=== PATIENT | female | born 1970 | race Caucasian/White ===

== ENCOUNTER → 2017-12-20 12:30 | Outpatient (CLI) | payer BC, SELFPAY ==
--- NOTE | 2017-12-20 12:35 | RAD_ITS ---
STUDY: X-RAY CHEST REASON FOR EXAM: Female, 47 years old. Acute bronchitis. TECHNIQUE: PA and lateral views of the chest. COMPARISON: None. FINDINGS: The lungs are clear and expanded. There is no demonstrated pleural abnormality. Normal size heart. Normal mediastinum and kedar. Normal visualized pulmonary arteries. Normal visualized aortic arch and descending thoracic aorta. There are degenerative changes of the visualized thoracic spine. Normal visualized ribs, clavicles, and shoulders. Surgical clips are seen in the right upper quadrant suggestive of prior cholecystectomy. RAD/Chest PA and Lateral IMPRESSION: Normal x-ray examination of the chest. Electronically Signed: Vijay Pablo MD at 14:58 EST Tel [phone], Service support ,
== END ==
PROVIDERS: Family Provider Family Medicine; PCP Family Medicine; Visit Provider Family Medicine
DX: J20.9 Acute bronchitis, unspecified (principal)
CPT/HCPCS: 71046

== ENCOUNTER → 2021-01-22 09:15 | Outpatient (CLI) | payer BC, SELFPAY ==
--- NOTE | 2021-01-22 09:38 | CT_ITS ---
STUDY: CT ABDOMEN AND PELVIS WITH CONTRAST REASON FOR EXAM: Female, 50 years old. ABD PAIN. One week history of diarrhea with central abdominal pain. RADIATION DOSAGE (If Supplied By Facility): CTDIvol = ( 12.345 ) mGy, DLP = ( 830.66 ) mGycm TECHNIQUE: Transaxial images were obtained from the dome of the diaphragm to the symphysis pubis with oral contrast. Oral and amp; IV Gastrografin and amp; 100mL Isovue-300 was administered. Sagittal and coronal images were reconstructed. Individualized dose optimization techniques were used for this CT. COMPARISON: None. FINDINGS: The visualized lung bases are unremarkable. The visualized portions of the heart are within normal limits. Normal liver. There are surgical clips in the gallbladder fossa consistent with a prior cholecystectomy. Minimally dilated central intrahepatic biliary ducts most likely secondary to prior cholecystectomy. Normal spleen. Normal pancreas. Normal bilateral adrenal glands. Normal right kidney. Normal left kidney. There is a small hiatal hernia. Mild degree of dilatation of proximal small bowel loops. This evidence of an intussusception in the mid jejunal level in the left upper quadrant as seen on axial images #46 through 56. Normal colon. The appendix is visualized and appears normal. Normal abdominal aorta. Normal inferior vena cava. Normal retroperitoneum. Normal urinary bladder. There is a 3.9 cm x 3 cm cyst in the right ovary. Multiple follicles are seen in the left ovary. The patient is status post bilateral tubal ligation. Normal abdominal wall. Normal osseous structures. CT/Abdomen/Pelvis WITH Contrast IMPRESSION: Findings in keeping with the intussusception in the left upper quadrant and in the mid jejunal loops as described. Right ovarian cyst. Multiple follicles are seen in the left ovary. Electronically Signed: Vijay Pablo MD at 12:32 EDT , Service support ,
--- NOTE | 2021-01-22 09:40 | RAD_ITS ---
STUDY: X-RAY CHEST REASON FOR EXAM: Female, 50 years old. CHEST PAIN TECHNIQUE: PA and lateral COMPARISON: 12/20/2017 report only FINDINGS: The lungs are clear and expanded. There is no demonstrated pleural abnormality. Normal size heart. Normal mediastinum and kedar. Normal visualized pulmonary arteries. Normal visualized aortic arch and descending thoracic aorta. Dorsal spine demonstrates mild spondylosis.. Normal visualized ribs, clavicles, and shoulders. There is no demonstrated abnormality of the visualized soft tissue structures of the upper abdomen. RAD/Chest PA and Lateral IMPRESSION: No acute cardiopulmonary pathology. Electronically Signed: Brent Barajas MD at 17:29 EDT , Service support ,
[2021-01-22 09:56] LABS: White Blood Count 5.1 K/mm3 (4.4-11.0)
[2021-01-22 09:57] LABS: Absolute Lymphocyte Count 1.79 X10^3/uL (0.83-4.51); Absolute Neutrophil Count 2.5 X10^3/uL (2.0-7.7); Basophil# 0.03 X10^3/uL; Basophil% 0.6 % (0-1); Eosinophil# 0.03 X10^3/uL; Eosinophils% 0.6 % (0-5); Hematocrit 45.9 % (37-47); Hemoglobin 14.9 g/dL (12.0-15.0); Lymphocyte # 1.79 X10^3/ul (4.0); Lymphocyte % 35.4 % (19-41); Mean Corp Hgb Conc 32.5 g/dL (32-36); Mean Corpuscular Hgb 26.9 pg (27.0-32.0); Mean Corpuscular Volume 82.9 fL (81-99); Mean Platelet Vol. 10.5 fl (6.2-12.0); Monocyte# 0.66 X10^3/uL; NRBC Flagged by Analyzer 0 % (0-5); Neutrophil # 2.54 X10^3/uL (2.7-7.7); Neutrophil % 50.2 % (47-70); Platelet Count 298 K/mm3 (150-450); RBC Distribution Width CV 14.2 % (11.6-14.6); RBC Distribution Width SD 43.2 fl (35.1-43.9); Red Blood Count 5.54 M/mm3 (4.2-5.4)
[2021-01-22 10:03] LABS: ALB/GLOB Ratio 0.8 RATIO (0.9-2.4); AST(SGOT) 44 U/L (15-37); Alanine Aminotransfer ALT/SGPT 117 U/L (13-56); Albumin, Serum 3.2 g/dL (3.2-5.0); Alkaline Phosphatase 63 U/L (45-117); Anion Gap 5 (5-15); BUN 10 mg/dL (7-18); BUN/Creat Ratio 13.6 RATIO (10-20); Chloride 100 mmol/L (98-107); Creatinine, Serum 0.73 mg/dL (0.55-1.02); EST Glomerular Filtration Rate 89 mL/min (>60); Est Glom Filt Rate - Afr Amer 108 mL/min (>60); Globulin 4.2 g/dL (2.2-4.2); Glucose 102 mg/dL (74-106); Lipase 147 U/L (73-393); Potassium 3.2 mmol/L (3.5-5.1); Protein, Total 7.4 g/dL (6.4-8.2); Sodium Level 136 mmol/L (136-145)
== END ==
PROVIDERS: PCP Family Medicine; Visit Provider Family Medicine
DX: R07.9 Chest pain, unspecified (principal)
CPT/HCPCS: 36415; 71046; 74177; 80053; 83690; 85025; Q9967; A4216

== ENCOUNTER 2021-01-22 12:30 | Observation (INO) | payer BC, SELFPAY ==
[2021-01-22] VITALS (7 sets, daily range): BP systolic 98–120; BP diastolic 59–80; PULSE 84–96; RESP 15–18; TEMP 36.3–37; O2SAT 94–100; BMI 25.6; BMI 26.2; BMI 26.3
--- NOTE | 2021-01-22 12:51 | ED.VIS.GI ---
History of Present Illness Chief Complaint: Abd Pain Informant: Patient - Abdominal Pain/Flank Pain Onset: Days Context: Gradual Onset Timing: Continuous Narrative: Patient is a 50-year-old female with history of anemia resenting with diarrhea, abdominal pain and intussusception on outpatient CT. Patient states she has been having diarrhea for the past 2 weeks and been feeling unwell. Last week she developed abdominal pain which has been worsening. States the pain is constant and sharp. States she is never had pain like this before. She had to go home from work last week because she was feeling so unwell. She was seen by her primary care doctor and had blood work including CBC and CMP as well as a CT of the abdomen pelvis performed. CT of the abdomen pelvis showed intussusception of the left upper quadrant and in the mid jejunal loops. This is consistent with area of patient's pain. Patient was sent to the ER for further evaluation. Patient denies any recent antibiotics. No other complaints at this time. Patient denies any history of C. difficile colitis. Past Medical History - Allergies and Home Meds Allergies/Adverse Reactions: Allergies No Known Allergies Allergy (Verified 01/22/21 12:32) Primary Care Physician: Yogi Lyons MD [Primary Care Provider] - Past Medical History: - - Anemia Surgical History: cholecystectomy, - - Lives: With Family Smoking Status: Never smoker Review of Systems General: Denies: Chills, Fever, Sweats Eyes: Denies: Visual changes - bilaterally, Diplopia ENT: Denies: Rhinorrhea, Sore throat Cardiovascular: Denies: Chest pain, Palpitations Respiratory: Denies: Dyspnea, Cough, Dyspnea on exertion Gastrointestinal: Reports: Abdominal pain, Nausea, Diarrhea. Denies: Vomiting, Melena, Hematochezia Genitourinary: Denies: Dysuria, Hematuria, Frequency Musculoskeletal: Denies: Back pain, Extremity Pain Skin: Denies: Rash, Wounds Neurological: Denies: Headache, Weakness, Numbness Physical Exam Vital Signs/Narrative: Vital Signs Temp Pulse Resp BP Pulse Ox 01/22/21 12:32 97.4 F L 93 15 107/79 99 Inital Vital Signs reviewed: Yes General: Well nourished, Well developed, No Acute Distress, - - Tearful Head: Normocephalic, Atraumatic Eyes: Perrl, EOMI ENT: Moist mucous membranes, No rhinorrhea Neck: Supple, Nontender Cardiovascular: Regular rate, Regular rhythm, No murmurs Respiratory: No distress, CTA bilaterally, Chest nontender Abdomen: Soft, Nondistended, Normal bowel sounds, Tender - Epigastric and left upper quadrant. Negative for: Guarding, Rebound tenderness Back: Nontender, Normal Inspection Extremities: Nontender, No edema Skin: Normal color, No rash Neurological: Alert, Oriented x3, Cranial nerves II-XII grossly intact, Normal Strength, Normal Sensation Psychological: Normal affect, Normal Mood Diagnostic/Tx/Re-eval - Medical Decision Making And for worsening abdominal pain and associated diarrhea and nausea. On exam she is tearful and does have pain in her epigastric region. She had an outpatient CT today that showed intussusception. She also has mild hypokalemia but I do not think this is the cause of her symptoms. Patient treated symptomatically with IV Pepcid, Zofran and morphine. She does have improvement of her symptoms. I did talk with on-call surgery, Dr. Chase, who would like small bowel follow-through performed. This is ordered from the ER. She reviewed these films and give final disposition based on this. Patient does require her second dose of morphine while she is over in radiology. Patient signed out to oncoming provider, Dr. Melendez, pending final disposition and results of small bowel follow-through. ED Disposition - Plan for ED Patient: Diagnosis: Diarrhea, Abdominal pain Referrals: Yogi Lyons MD [Primary Care Provider] -
[2021-01-22] MEDS: 0.9% Normal Saline 1,000 ML 999 ML IV (13:12)
[2021-01-22] MEDS: Ondansetron 4 MG/2 ML Vial IV ×2 (13:13→17:15)
[2021-01-22] MEDS: Morphine 4 MG/ML Syringe IV ×2 (13:13→14:15)
--- NOTE | 2021-01-22 13:25 | RAD_ITS ---
INDICATION: ? intussispection -- gastrograffin EXAMINATION/TECHNIQUE: Gastrograffin oral contrast was administered orally via orally to the patient. Total Fluoroscopic Time: 180 AND number of Fluoroscopic Images: 9 OR Radiation dosage index: COMPARISON: CT earlier today FINDINGS: No masses or strictures are identified. The mucosal pattern is unremarkable. There is normal motility. Reflux was not elicited. RAD/Small Bowel Series Only IMPRESSION: No bowel obstruction Electronically Signed: Alessio Manning MD at 16:55 EDT Tel , Service support ,
[2021-01-22] MEDS: Famotidine 200 MG/20 ML MDV 20 MG in 0.9% Normal Saline (Pres. free 8 ML 300 MG IV (14:46)
--- NOTE | 2021-01-22 14:48 | PCM.HP.STD ---
Problem List (1) Abdominal pain Status: Acute History of Present Illness Date of Admission: 01/22/21 Chief Complaint: Left upper quadrant abdominal pain. Diarrhea. The patient is a 50 year old F who presented to the ED following having a CT scan of the ab/pel which demonstrated intussusception. Patient was evaluated in x-ray. She states her last solid food meal was on 01/10. She noted Wednesday, 01/12, she lost her appetite. Her abdominal pain started started around this same time as well. She has been nauseated. No true vomiting. She notes difficulty sleeping due to the pain. She notes she has not slept in over a week. She was scheduled to see her PCP today who ordered lab work and a CT scan. She notes prior to her symptoms she had normal bowel movements and normal appetite. She denies previous colonoscopy. She denies family history of colon cancer or inflammatory bowel disease. She denies rectal bleeding or melena. 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 She does not take any routine medications. She has had previous x 2 and lap cholecystectomy. She denies smoking history, alcohol use or illicit drug use. CT scan of the abdomen demonstrates Findings in keeping with the intussusception in the left upper quadrant and in the mid jejunal loops as described. Right ovarian cyst. Multiple follicles are seen in the left ovary. She is currently having a small bowel follow-through. Past Medical History Medical History: Medical History (Last Reviewed 01/22/21 @ 15:00 by Jennifer CASTILLO, PA-C) Anemia D64.9 Chest pain R07.9 SOB (shortness of breath) R06.02 Toxic shock A48.3 Allergies No Known Allergies Allergy (Verified 01/22/21 12:32) Home Medications: Ambulatory Orders Medication Instructions Recorded Ibuprofen [Advil] 200 mg PO DAILY PRN PRN 01/22/21 Surgical History: Surgical History (Last Reviewed 01/22/21 @ 15:00 by Jennifer CASTILLO, PA-C) History of knee surgery Z98.890 Hx of section Z98.891 Hx of cholecystectomy Z98.890, Z90.49 Surgical History: cholecystectomy, - - Psychiatric History: No pertinent psych hx Lives: Spouse/ Significant Other Smoking Status: Never smoker - *Family History Maternal History Items: No pertinent history Paternal History Items: No pertinent history Review of Systems Constitutional: Reports: Anorexia, Weakness. Denies: Chills, Fever HEENT: Denies: Head Aches, Sinus Congestion, Sinus Drainage Cardiovascular: Denies: Chest Pain, Palpitations Respiratory: Denies: Cough, Shortness of breath at rest, Sputum production Gastrointestinal: Reports: Abdominal Pain, Diarrhea, Nausea. Denies: Melena, Vomiting Genitourinary: Denies: Dysuria Musculoskeletal: Denies: Joint Pain, Joint Tenderness Skin: Denies: Rash, Wounds Neurological: Denies: Numbness, Tingling, Focal weakness Psychiatric: Denies: Anxiety, Depression, Homicidal Ideations, Suicidal Ideations Hematologic/ Lymphatic: Denies: Easy Bruising, Easy Bleeding VTE Information - Inpt Only VTE Present on Admission: Yes VTE Mechan Device Prophylaxis: SCD's Patient Problems: Active and Suspected Problems (Last Reviewed 01/22/21 @ 15:00 by ANNA Walker-C) Abdominal pain (Acute) - Physical Exam Vitals/I&O's: Vital Signs Temp Pulse Resp BP Pulse Ox 97.4 F L 93 15 107/79 99 01/22/21 12:32 01/22/21 12:32 01/22/21 12:32 01/22/21 12:32 01/22/21 12:32 Oxygen Delivery Method Room Air Weight: 163 lb 9.328 oz Body Mass Index (BMI) 25.6 General: Alert, Oriented x3, Cooperative, - - tearful HEENT: Atraumatic, PERRLA, EOMI, Normocephalic Neck: Supple, No JVD, Negative Carotid Bruits Lungs: Clear to auscultation, Normal air movement Cardiovascular: Regular rate, No murmurs Abdomen: Hyperactive Bowel Sounds, Distended - slightly, Guarding - LUQ, Tender - left upper quadrant Extremities: No edema, Capillary Refill Less than 3 Seconds Skin: No rashes, No breakdown Musculoskeletal: No Tenderness to Palpation of Joints or Extremities Neurological: Neuro grossly intact Psych/Mental Status: Normal Affect, Appropriate Assessment/Plan All Active Problems (Last Reviewed 01/22/21 @ 15:00 by Jennifer CASTILLO PA-C) Abdominal pain (Acute) Anxiety as acute reaction to exceptional stress (Acute) I am seeing this patient in conjunction with Dr. Chase. She will independently evaluate this patient. Impression: LUQ abdominal pain severe with guarding. Diarrhea. Plan: I have discussed this patient with Dr. Chase. Will plan to admit this patient for IV hydration and pain control. It was discussed with the patient that Dr. Chase may perform an exploratory laparoscopy procedure if patient does not improve. Patient has had the opportunity to ask and have questions answered. Patient verbally understands and agrees with the plan. Thank you for allowing us to participate in this patient's care. Office Visits / Consults: [id number] IP Consult L3
--- NOTE | 2021-01-22 15:31 | NURSING ---
MED SURG OBS ROBOTELFEGO ABD PAIN, INTUSSUSCEPTION
--- NOTE | 2021-01-22 15:32 | NURSING ---
DR HUERTA IN ROOM
[2021-01-22] MEDS: HYDROmorphone 0.5 MG/0.5 ML SYRINGE IV ×3 (15:33→19:17)
[2021-01-22] MEDS: Lactated Ringers 1,000 ML 130 ML IV (16:30)
[2021-01-22] MEDS: 0.9% Saline Lock 10 ML Syringe IV (16:40)
--- NOTE | 2021-01-22 18:08 | NURSING ---
k pad to abd.-pt sleeping
[2021-01-22] MEDS: proCHLORPERazine 10 MG/2 ML Vial IV (19:17)
[2021-01-23] VITALS (21 sets, daily range): BP systolic 92–115; BP diastolic 52–69; PULSE 66–89; RESP 16–18; TEMP 36–36.9; O2SAT 94–99; BMI 26.2
[2021-01-23] MEDS: Lactated Ringers 1,000 ML 130 ML IV ×3 (00:28→22:52)
--- NOTE | 2021-01-23 05:30 | EKG12_ITS ---
Test Reason : AM EKG Blood Pressure : / mmHG Vent. Rate : 105 BPM Atrial Rate : 115 BPM P-R Int : 000 ms QRS Dur : 098 ms QT Int : 366 ms P-R-T Axes : 000 043 018 degrees QTc Int : 483 ms Atrial fibrillation Nonspecific T wave abnormality , probably digitalis effect Abnormal ECG No previous ECGs available Confirmed by JOSY MCNAMARA, BERRY ([id number]), magazine editor MICHAEL BEAUCHAMP ([id number]) on 01/27/2021 1:56:26 PM Referred By: DEANNA Confirmed By:BERRY FERRIS MD
--- NOTE | 2021-01-23 05:37 | ECHOD_ITS ---
Reason For Study: AFIB Procedure This was a 2D Doppler, Color Flow transthoracic echocardiogram. Exam performed portable in patient room. Left Ventricle Normal LV size. The estimated ejection fraction is 60 %. No evidence for diastolic dysfunction. No regional wall motion abnormalities noted. Right Ventricle Normal RV size. Normal systolic function. Atria Normal left atrium. Normal right atrium. No doppler evidence for ASD. Mitral Valve There is no mitral valve stenosis. No mitral valve insufficiency. Tricuspid Valve There is no tricuspid stenosis. Unable to estimate RV systolic pressure due to insufficient tricuspid regurgitant envelope. Trivial tricuspid valve insufficiency. Aortic Valve Trisinus/trileaflet aortic valve. There is no aortic stenosis. No aortic valve insufficiency. Pulmonic Valve There is no pulmonic valvular stenosis. No pulmonic valve insufficiency. Great Vessels Normal aortic root. Pericardium/Pleural No pericardial effusion. MMode/2D Measurements & Calculations LVIDd: 4.4 cm IVSd: 0.98 cm Ao root diam: 2.7 cm LVIDs: 3.1 cm LVPWd: 0.96 cm RVDd: 4.2 cm FS: 30.2 % LAV(MOD-bp): 46.8 ml LA A4 area: 17.7 cm2 LA dimension(2D): 3.5 cm LAV(MOD-bp) Indexed: 25.0 ml/m2 LAV(MOD-sp2): 43.6 ml LAV(MOD-sp4): 48.3 ml RA A4 area: 13.4 cm2 Time Measurements MV dec time: 0.18 sec Doppler Measurements & Calculations MV E max rodríguez: 60.4 cm/sec Lat Peak E' Rodríguez: 14.3 cm/sec Med Peak E' Rodríguez: 12.3 cm/sec MV A max rodríguez: 48.3 cm/sec E/E' lat: 4.2 E/E' med: 4.9 MV E/A: 1.3 Ao V2 max: 108.7 cm/sec LV V1 max: 99.9 cm/sec PA V2 max: 96.1 cm/sec Ao max P.7 mmHg LV V1 max P.0 mmHg TR max rodríguez: 190.7 cm/sec TR max P.6 mmHg Interpretation Summary The estimated ejection fraction is 60 %. No evidence for diastolic dysfunction. Ordering Physician: Candis Ospina Referring Physician: DINAH CARDOZA Performed By: Maryjane Zhou, GLYNN, RVT
--- NOTE | 2021-01-23 05:42 | PN_ITS ---
Patient Problems: Active and Suspected Problems (Last Reviewed 01/22/21 @ 15:00 by Jennifer CASTILLO, JA) Abdominal pain (Acute) Diarrhea (Acute) Abdominal pain (Acute) Subjective: The patient is a 50 y/o F w/ PMHx: Prior anemia on no medications who presented to the [facility] ED initilaly on 01/22/21 with ongoing LUQ discomfort and profuse diarrhea with associated decreased appetite, nausea without emesis starting 01/12/21 with poor sleep secondary to ongoing symptoms. She did see her PCP and outpatient CT was ordered. Work-up in the ED at that time included T 97.4, heart rate in 83, BP 107/79, respiratory rate 15, 99% on room air, CBC with WC 5.1, hemoglobin 14.9, platelet 298 without marked left shift noted, increased monocytes, CMP with potassium 3.2, total bilirubin 0.90, AST/ALT 44/117, lipase 147, negative C. difficile assay with pending enteric bacterial pathogens and negative rapid Covid antigen, CT abdomen/pelvis with findings consistent with intussusception in the left upper quadrant and mild jejunal loops with evidence of right ovarian cyst and multiple follicles in the left ovary. Patient was admitted per general surgery, admitted to medical surgical floor with judicious IV fluids, pain control and plan potential exploratory laparotomy. Potential preoperative EKG was obtained 01/23/2021 early a.m. and is concerning for possible rate controlled new onset atrial fibrillation. No EKG comparison available. Patient reports still ongoing primarily LUQ, epigastric lower region abdominal pain, sharp, worse with palpation with nausea. No diarrhea since evening prior and was profuse. She currently rates her pain 6/10. She denies any dyspnea, chest pain, lightheadedness or dizziness. PMHx: Prior Anemia. PSurgHx: Isabel, x 2, Uterine ablation. Family Hx: Denies any maternal history including HD, DM, CA. Father with Hx CVA, DM, HTN, Current evaluation for lower esophageal CA. Social Hx: Lives with and children, no tobacco use, no EtOH use. Objective: Physical Examination: General: awake, alert, oriented x 3 and cooperative, laying in the MS bed, notes uncomfortable, ongoing LUQ pain, 6/10 currently. Skin: normal color, turgor, no icterus, cyanosis. HEENT: AT/NC, EOMI, PERRLA, moderately dry MM, no carotid bruits or JVD noted. Lungs: CTA bilaterally, moderate effort, mild decrease BL bases, no rales, ronchi or wheezing. Heart: Irregular rhythm; no gallop, rub audible. Abdomen: soft, notable discomfort LUQ and lower mid-epigastric region with guarding, ND, notably hyperactive BS, difficult to assess HSM secondary to pain. Extremities: no cyanosis, clubbing, or edema. Neurological: patient awake, alert, oriented as noted; cognitive function intact; pupils equally reactive to light and accomodation; cranial nerves II-XII grossly normal, moving all 4 extremities, no focal deficits, strength severely globally decreased secondary to acute pain/presentation. Psychiatric: affect appears uncomfortable, no acute evidence of depressive or anxiety feelings. Vitals/I&O's: Vital Signs Temp Pulse Resp BP Pulse Ox 97.7 F L 66 18 92/52 L 98 01/23/21 05:04 01/23/21 05:04 01/23/21 05:04 01/23/21 05:04 01/23/21 05:04 Oxygen Delivery Method Room Air Weight: 167 lb 12.348 oz Body Mass Index (BMI) 26.2 Intake and Output for Last 24 Hours 01/21/21 01/22/21 01/23/21 23:59 23:59 23:59 Intake Total 1120 / 1120 1000 / 1000 Output Total 1050 / 1050 1000 / 1000 Balance 70 / 70 0 / 0 Microbiology Past 72 Hours 01/22/21 18:35 Stool Stool Lactoferrin - Final 01/22/21 18:35 Stool C. difficile DNA Amplification - Final 01/22/21 19:20 Mucosa - Nasopharyngeal SARS-CoV-2 Antigen (Rapid) - Final Current Medications Acetaminophen (Acetaminophen 325 Mg Tablet) 650 mg PO Q6H PRN PRN PRN Reason: Pain Score 1-10 Albuterol Sulfate (Albuterol 2.5 Mg/3 Ml Vial.Neb.) 2.5 mg INHALATION Q2H PRN PRN PRN Reason: Dyspnea, wheezing Hydralazine HCl (Hydralazine 20 Mg/Ml Vial) 10 mg IV Q4H PRN PRN PRN Reason: SBP > 160 Hydromorphone HCl (Hydromorphone 0.5 Mg/0.5 Ml Syringe) 0.5 - 1 mg IV Q2H PRN PRN PRN Reason: Pain Score 1-10 Last Admin: 01/22/21 19:17 Dose: 0.5 mg Documented by: Hydromorphone HCl (Hydromorphone 1 Mg/Ml Syringe) 0.5 - 1 mg IV Q2H PRN PRN PRN Reason: Pain Score 1-10 Lactated Ringer's () 1,000 mls @ 130 mls/hr IV .Q7H42M QAMAR Last Admin: 01/23/21 00:28 Dose: 130 mls/hr Documented by: Pantoprazole Sodium 40 mg/ (Sodium Chloride) 110 mls @ 330 mls/hr IV Q24 QAMAR Last Infusion: 01/22/21 17:35 Dose: Infused Documented by: Ondansetron HCl (Ondansetron 4 Mg/2 Ml Vial) 4 mg IV Q8H PRN PRN PRN Reason: NAUSEA Last Admin: 01/22/21 17:15 Dose: 4 mg Documented by: Prochlorperazine Edisylate (Prochlorperazine 10 Mg/2 Ml Vial) 5 - 10 mg IV Q4H PRN PRN PRN Reason: NAUSEA/VOMITING Last Admin: 01/22/21 19:17 Dose: 10 mg Documented by: Sodium Chloride (0.9% Saline Lock 10 Ml Syringe) 10 - 40 ml IV UD PRN PRN Reason: SALINE FLUSH Last Admin: 01/22/21 16:40 Dose: 10 ml Documented by: STROKE Vital Signs/Narrative: Vital Signs Temp Pulse Resp BP Pulse Ox 01/23/21 05:04 97.7 F L 66 18 92/52 L 98 Medical Necessity - Tobacco Use Smoking Status: Never smoker Assessment/Plan All Active Problems (Last Reviewed 01/22/21 @ 15:00 by Jennifer CASTILLO PA-C) Abdominal pain (Acute) Diarrhea (Acute) Abdominal pain (Acute) Anxiety as acute reaction to exceptional stress (Acute) The patient is a 50 y/o F w/ PMHx: Prior anemia on no medications who presented to the [facility] ED initilaly on 01/22/21 with ongoing LUQ discomfort and profuse diarrhea with associated decreased appetite, nausea without emesis starting 01/12/21 with poor sleep secondary to ongoing symptoms with in-house EKG with asymptomatic possible PAF. 1. New onset, Paroxsymal atrial fibrillation: EKG w/ atrial fibrillation appearance, rate controlled, asymptomatic. Will defer any medication addition given current mild hypotension. Will transition to telemetry status, will request repeat EKG in AM, obtain cardiac enzyme serial set to be cautious as unclear timeline, obtain magnesium level, obtain ECHO, obtain TSH level. Given possible OR needs will defer anticoagulation. 2. Abdominal pain, Questionable intussusception: Continued NPO status, maintained on IVFs, negative c-diff assay, pending enteric pathogen, possible OR needs, discussed with Dr. Chase and will defer anticoagulation in case of OR needs. 3. Hypotensive: Will add LR bolus, continue MIVF following, add fentanyl for pain given low BP systolics 90s. 4. DVT prophylaxis: SCDs, defer chemoprophylaxis secondary to possible OR needs. Inpatient E&M: [id number] [facility]
[2021-01-23] MEDS: Lactated Ringers 1,000 ML 999 ML IV (06:05)
[2021-01-23 06:06] LABS: Absolute Lymphocyte Count 1.49 X10^3/uL (0.83-4.51); Absolute Neutrophil Count 2.3 X10^3/uL (2.0-7.7); Basophil# 0.02 X10^3/uL; Basophil% 0.5 % (0-1); Eosinophil# 0.03 X10^3/uL; Eosinophils% 0.7 % (0-5); Hematocrit 40.3 % (37-47); Hemoglobin 13.2 g/dL (12.0-15.0); Lymphocyte # 1.49 X10^3/ul (4.0); Lymphocyte % 33.9 % (19-41); Mean Corp Hgb Conc 32.8 g/dL (32-36); Mean Corpuscular Hgb 27.5 pg (27.0-32.0); Mean Platelet Vol. 10.4 fl (6.2-12.0); Monocyte# 0.54 X10^3/uL; Monocyte% 12.3 % (0-10); NRBC Flagged by Analyzer 0 % (0-5); Neutrophil # 2.29 X10^3/uL (2.7-7.7); Neutrophil % 52.1 % (47-70); Platelet Count 273 K/mm3 (150-450); RBC Distribution Width CV 14.4 % (11.6-14.6); RBC Distribution Width SD 44.3 fl (35.1-43.9); White Blood Count 4.4 K/mm3 (4.4-11.0)
[2021-01-23] MEDS: proCHLORPERazine 10 MG/2 ML Vial IV ×2 (06:30→15:45)
[2021-01-23] MEDS: fentaNYL 100 MCG/2 ML Ampul 25 MCG IV ×2 (06:30→16:15)
--- NOTE | 2021-01-23 08:01 | PCM.PN.SRG ---
Patient Problems: Active and Suspected Problems (Last Reviewed 01/22/21 @ 15:00 by Jennifer CASTILLO PA-C) Abdominal pain (Acute) Diarrhea (Acute) Abdominal pain (Acute) Subjective: Patient did have emesis overnight. Patient was able to fall asleep afterwards and did not require pain meds until this morning states her pain was a 6 out of 10 did get some medication. Patient also had an EKG for possible preop which did show A. fib. Patient's troponins negative, echo scheduled labs pending - Physical Exam Vitals/I&O's: Vital Signs Temp Pulse Resp BP Pulse Ox 97.7 F L 79 18 92/52 L 98 01/23/21 05:04 01/23/21 07:45 01/23/21 05:04 01/23/21 05:04 01/23/21 07:01 Oxygen Delivery Method Room Air Weight: 167 lb 12.348 oz Body Mass Index (BMI) 26.2 Intake and Output for Last 24 Hours 01/21/21 01/22/21 01/23/21 23:59 23:59 23:59 Intake Total 1120 / 1120 1000 / 1000 Output Total 1050 / 1050 1300 / 1300 Balance 70 / 70 -300 / -300 General: Alert, Oriented x3, Cooperative Lungs: Normal air movement Cardiovascular: Regular rate Abdomen: Soft, Non-Distended, Tender - Left upper quadrant greater than left lower quadrant, no peritoneal signs, voluntary guarding Extremities: No clubbing, No cyanosis, No edema Microbiology Past 72 Hours 01/22/21 18:35 Stool Stool Lactoferrin - Final 01/22/21 18:35 Stool C. difficile DNA Amplification - Final 01/22/21 19:20 Mucosa - Nasopharyngeal SARS-CoV-2 Antigen (Rapid) - Final Laboratory Results 01/23/21 06:00: WBC 4.4, RBC 4.80, Hgb 13.2, Hct 40.3, MCV 84.0, MCH 27.5, MCHC 32.8, RDW Std Deviation 44.3 H, RDW Coeff of Nat 14.4, Plt Count 273, MPV 10.4, Immature Gran % (Auto) 0.500, Neut % (Auto) 52.1, Lymph % (Auto) 33.9, [place] % (Auto) 12.3 H, Eos % (Auto) 0.7, Baso % (Auto) 0.5, Absolute Neuts (auto) 2.3, Absolute Lymphs (auto) 1.49, Nucleated RBC % 0 01/23/21 06:00: Sodium Pending, Potassium Pending, Chloride Pending, Carbon Dioxide Pending, Anion Gap Pending, BUN Pending, Creatinine Pending, Est GFR (MDRD) Af Amer Pending, Est GFR (MDRD) Non-Af Pending, BUN/Creatinine Ratio Pending, Glucose Pending, Calcium Pending, Magnesium Pending, TSH Pending 01/23/21 06:00: Troponin I < 0.015 Current Medications Acetaminophen (Acetaminophen 325 Mg Tablet) 650 mg PO Q6H PRN PRN PRN Reason: Pain Score 1-10 Albuterol Sulfate (Albuterol 2.5 Mg/3 Ml Vial.Neb.) 2.5 mg INHALATION Q2H PRN PRN PRN Reason: Dyspnea, wheezing Fentanyl Citrate (Fentanyl 100 Mcg/2 Ml Ampul) 25 mcg IV Q2H PRN PRN PRN Reason: severe pain 6-10/10 while hypotensive Last Admin: 01/23/21 06:30 Dose: 25 mcg Documented by: Hydralazine HCl (Hydralazine 20 Mg/Ml Vial) 10 mg IV Q4H PRN PRN PRN Reason: SBP > 160 Hydromorphone HCl (Hydromorphone 0.5 Mg/0.5 Ml Syringe) 0.5 - 1 mg IV Q2H PRN PRN PRN Reason: Pain Score 1-10 Last Admin: 01/22/21 19:17 Dose: 0.5 mg Documented by: Hydromorphone HCl (Hydromorphone 1 Mg/Ml Syringe) 0.5 - 1 mg IV Q2H PRN PRN PRN Reason: Pain Score 1-10 Lactated Ringer's () 1,000 mls @ 130 mls/hr IV .Q7H42M [facility] Last Admin: 01/23/21 00:28 Dose: 130 mls/hr Documented by: Pantoprazole Sodium 40 mg/ (Sodium Chloride) 110 mls @ 330 mls/hr IV Q24 [facility] Last Infusion: 01/22/21 17:35 Dose: Infused Documented by: Ondansetron HCl (Ondansetron 4 Mg/2 Ml Vial) 4 mg IV Q8H PRN PRN PRN Reason: NAUSEA Last Admin: 01/22/21 17:15 Dose: 4 mg Documented by: Prochlorperazine Edisylate (Prochlorperazine 10 Mg/2 Ml Vial) 5 - 10 mg IV Q4H PRN PRN PRN Reason: NAUSEA/VOMITING Last Admin: 01/23/21 06:30 Dose: 10 mg Documented by: Sodium Chloride (0.9% Saline Lock 10 Ml Syringe) 10 - 40 ml IV UD PRN PRN Reason: SALINE FLUSH Last Admin: 01/22/21 16:40 Dose: 10 ml Documented by: Medical Necessity - Tobacco Use Smoking Status: Never smoker Assessment/Plan All Active Problems (Last Reviewed 01/22/21 @ 15:00 by Jennifer CASTILLO PA-C) Abdominal pain (Acute) Diarrhea (Acute) Abdominal pain (Acute) Anxiety as acute reaction to exceptional stress (Acute) 50-year-old female with abdominal pain questionable interception on CT, diarrhea new onset A. fib 1. N.p.o./IV fluids. Stool studies?enteric Panel negative, positive fecal leukocytes. 2. Patient does state her abdominal pain is a little bit improved. Since pain is improved would plan to complete the A. fib work-up prior to any surgery. We will check a KUB this morning. Discussed with patient that surgery would be diagnostic laparoscopy possible bowel resection possible laparotomy looking at the segment of could be involved in the possible intussusception per CT. Discussed with the patient and her previously that if there were to be intussusception during surgery we would be removing that part of the bowel. Discussed risk include but not limited to bleeding, infection, injury to another organ, and anesthesia. Addendum: We will plan for a diagnostic laparoscopy at about 2 PM today. Patient is currently getting her echo. 3. New onset A. fib?labs pending, troponin negative, echo scheduled, appreciate medicine's assistance. Gertrudis Chase M.D. Pager: [phone] [facility] [address] [place] [address], [facility], [address] [place] [address] Office: [phone]
[2021-01-23 08:33] LABS: Anion Gap 8 (5-15); BUN 9 mg/dL (7-18); Calcium,Total 8.7 mg/dL (8.5-10.1); Chloride 104 mmol/L (98-107); EST Glomerular Filtration Rate 113 mL/min (>60); Est Glom Filt Rate - Afr Amer 137 mL/min (>60); Glucose 86 mg/dL (74-106); Magnesium 1.7 mg/dL (1.6-2.6); Sodium Level 141 mmol/L (136-145); Thyroid Stim Hormone (TSH) 2.01 uIU/mL (0.358-3.74)
[2021-01-23] MEDS: Potassium Chloride 10mEq/100mL 10 MEQ/100 ML IV.SOLN. 100 MEQ IV BOLUS ×4 (09:10→13:22)
--- NOTE | 2021-01-23 09:14 | RAD_ITS ---
STUDY: X-RAY - ABDOMEN/PELVIS REASON FOR EXAM: Female, 50 years old. Abd pain -- portable TECHNIQUE: Single AP view of the abdomen / pelvis. COMPARISON: None. FINDINGS: Normal visualized lung bases. Oral contrast is seen within the colon. The gas pattern is unremarkable. The visualized liver, spleen and kidneys are grossly normal in size and morphology. Tubal ligation clips are seen in the pelvis. Clips are also seen in the right lower quadrant. Normal visualized osseous structures. RAD/Abdomen Single View (Portable) IMPRESSION: Oral contrast is seen within the colon. The bowel gas pattern is unremarkable. Electronically Signed: Vijay Pablo MD at 9:42 EDT , Service support ,
--- NOTE | 2021-01-23 09:45 | PCM.PROGNOTE ---
Patient Problems: Active and Suspected Problems (Last Reviewed 01/22/21 @ 15:00 by Jennifer CASTILLO PA-C) Abdominal pain (Acute) Diarrhea (Acute) Abdominal pain (Acute) Subjective: Patient seen and examined. States abdominal pain is slightly improved. Denies chest pain, palpitations, shortness of breath. Heart rhythm has returned to normal sinus rhythm. Echocardiogram results pending. - Physical Exam Vitals/I&O's: Vital Signs Temp Pulse Resp BP Pulse Ox 97.8 F 83 16 102/60 96 01/23/21 09:35 01/23/21 09:35 01/23/21 09:35 01/23/21 09:35 01/23/21 09:35 Oxygen Delivery Method Room Air Weight: 167 lb 12.348 oz Body Mass Index (BMI) 26.2 Intake and Output for Last 24 Hours 01/21/21 01/22/21 01/23/21 23:59 23:59 23:59 Intake Total 1120 / 1120 1000 / 1000 Output Total 1050 / 1050 1300 / 1300 Balance 70 / 70 -300 / -300 General: Alert, Oriented x3, Cooperative HEENT: Atraumatic, PERRLA, EOMI, Normocephalic Neck: Supple, No JVD, Negative Carotid Bruits Lungs: Clear to auscultation, Normal air movement Cardiovascular: Regular rate, No murmurs Abdomen: Bowel Sounds Present, Soft, Non-Distended, Tender Extremities: No clubbing, No cyanosis, No edema, Capillary Refill Less than 3 Seconds Skin: No rashes, No breakdown Musculoskeletal: No Tenderness to Palpation of Joints or Extremities Neurological: Cranial nerves II-XII grossly intact, Neuro grossly intact Psych/Mental Status: Flat Affect Microbiology Past 72 Hours 01/23/21 18:35 Stool Enteric Bacteriology - Final 01/22/21 18:35 Stool Stool Lactoferrin - Final 01/22/21 18:35 Stool C. difficile DNA Amplification - Final 01/22/21 19:20 Mucosa - Nasopharyngeal SARS-CoV-2 Antigen (Rapid) - Final Laboratory Results 01/23/21 06:00: WBC 4.4, RBC 4.80, Hgb 13.2, Hct 40.3, MCV 84.0, MCH 27.5, MCHC 32.8, RDW Std Deviation 44.3 H, RDW Coeff of Nat 14.4, Plt Count 273, MPV 10.4, Immature Gran % (Auto) 0.500, Neut % (Auto) 52.1, Lymph % (Auto) 33.9, Josephine % (Auto) 12.3 H, Eos % (Auto) 0.7, Baso % (Auto) 0.5, Absolute Neuts (auto) 2.3, Absolute Lymphs (auto) 1.49, Nucleated RBC % 0 01/23/21 06:00: Sodium 141, Potassium 3.0 L, Chloride 104, Carbon Dioxide 29.0, Anion Gap 8, BUN 9, Creatinine 0.60, Estim Creat Clear Calc 110.30, Est GFR (MDRD) Af Amer 137, Est GFR (MDRD) Non-Af 113, BUN/Creatinine Ratio 15.0, Glucose 86, Calcium 8.7, Magnesium 1.7, TSH 2.01 01/23/21 06:00: Troponin I < 0.015 Current Medications Acetaminophen (Acetaminophen 325 Mg Tablet) 650 mg PO Q6H PRN PRN PRN Reason: Pain Score 1-10 Albuterol Sulfate (Albuterol 2.5 Mg/3 Ml Vial.Neb.) 2.5 mg INHALATION Q2H PRN PRN PRN Reason: Dyspnea, wheezing Fentanyl Citrate (Fentanyl 100 Mcg/2 Ml Ampul) 25 mcg IV Q2H PRN PRN PRN Reason: severe pain 6-10/10 while hypotensive Last Admin: 01/23/21 06:30 Dose: 25 mcg Documented by: Hydralazine HCl (Hydralazine 20 Mg/Ml Vial) 10 mg IV Q4H PRN PRN PRN Reason: SBP > 160 Hydromorphone HCl (Hydromorphone 0.5 Mg/0.5 Ml Syringe) 0.5 - 1 mg IV Q2H PRN PRN PRN Reason: Pain Score 1-10 Last Admin: 01/22/21 19:17 Dose: 0.5 mg Documented by: Hydromorphone HCl (Hydromorphone 1 Mg/Ml Syringe) 0.5 - 1 mg IV Q2H PRN PRN PRN Reason: Pain Score 1-10 Lactated Ringer's () 1,000 mls @ 130 mls/hr IV .Q7H42M [facility] Last Admin: 01/23/21 00:28 Dose: 130 mls/hr Documented by: Pantoprazole Sodium 40 mg/ (Sodium Chloride) 110 mls @ 330 mls/hr IV Q24 [facility] Last Infusion: 01/22/21 17:35 Dose: Infused Documented by: Potassium Chloride () 10 meq in 100 mls @ 100 mls/hr IV BOLUS Q1H [facility] Stop: 01/23/21 13:29 Ondansetron HCl (Ondansetron 4 Mg/2 Ml Vial) 4 mg IV Q8H PRN PRN PRN Reason: NAUSEA Last Admin: 01/22/21 17:15 Dose: 4 mg Documented by: Prochlorperazine Edisylate (Prochlorperazine 10 Mg/2 Ml Vial) 5 - 10 mg IV Q4H PRN PRN PRN Reason: NAUSEA/VOMITING Last Admin: 01/23/21 06:30 Dose: 10 mg Documented by: Sodium Chloride (0.9% Saline Lock 10 Ml Syringe) 10 - 40 ml IV UD PRN PRN Reason: SALINE FLUSH Last Admin: 01/22/21 16:40 Dose: 10 ml Documented by: Medical Necessity - Tobacco Use Smoking Status: Never smoker Assessment/Plan All Active Problems (Last Reviewed 01/22/21 @ 15:00 by Jennifer CASTILLO, PA-C) Abdominal pain (Acute) Diarrhea (Acute) Abdominal pain (Acute) Anxiety as acute reaction to exceptional stress (Acute) 1. New onset A. fib-returned to normal sinus rhythm. Troponin negative. Echocardiogram completed, report pending. TSH, mag within normal limits. 2. Hypokalemia-replace per protocol, trend BMP. 3. Hypotension-improved with fluid resuscitation. 4. Abdominal pain, questionable intussusception-General surgery following. KUB pending. Plan for possible diagnostic laparoscopy. Management per surgery. DVT prophylaxis- SCDs This patient was seen by MALU Schofield under the supervision of Dr. Gordon.
--- NOTE | 2021-01-23 11:22 | OP.PCM_ITS ---
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 Patient states she been having abdominal pain for 2 weeks with diarrhea for the last week. On work-up patient stool studies only showed fecal leukocytes other stool studies were negative. Patient normal white blood cell count, small bowel follow-through made it to the cecum in 3 hours. Continue to have abdominal pain. Preoperative work-up with an EKG did show A. fib, patient's potassium was low at 3 this was replaced magnesium was normal, troponins were negative, echo was also normal with ejection fraction of 60%. Description of procedure: Patient presents operating placed find the operating table. Timeout was completed verifying correct patient, procedure, site, positioning, special equipment prior to beginning procedure. Patient's arms were tucked and appropriately padded. Abdomen is prepped draped in usual sterile fashion. An infraumbilical incision was made with a 15 blade scalpel. The fascia was grasped and elevated. It was incised. Entry into the abdomen was done under direct visualization. Rader trocar was placed. Abdomen was insufflated with CO2 to 12 to 15 mmHg. Patient tolerated insufflation well. Ad ditional 5 mm trocar were placed in the right upper quadrant and right lower quadrant. Atraumatic graspers were used to run the entirety of the small bowel there is no evidence of any intussusception or abnormal trauma to the bowel. There were some inflamed lymph nodes; however they were small in size. There was noted to be loose filshie clip from tubal in the pelvis which was removed prior to allowing the abdomen to collapse. Trochars were removed under direct visualization. Local anesthesia of 0.25% Marcaine with epinephrine was used. The fascia of the 12 mm port site was closed with 0 Vicryl [id number] suture. Ports were irrigated. Skin was closed with 4-0 Monocryl suture and Steri-Strips and OpSite's. Patient was extubated. Patient tolerated procedure well was taken to postanesthesia care unit. - Complications none
[2021-01-23] MEDS: Bupiv/Epi 0.25% 30 ML Vial (11:25)
--- NOTE | 2021-01-23 13:45 | DCINST_ITS ---
Discharge Diet: Light diet - advance as tolerated Discharge Activity: May not drive while taking narcotic pain medications. May shower in (days): 1 Lifting Restrictions: no lifting > 20 lbs x 2 weeks Call your doctor if your incision/area has: Continuous Slow Oozing, Sudden Increased Bleeding, Increased Pain/ Swelling, Increased Redness, Foul Smelling Discharge, Swelling at the incision site Call your doctor if you observe: Fever of 101 or Higher Additional Instructions: Our office will referral to GI they will contact us you for capsule endoscopy. If you not hear from them let us know if there is any issues with insurance let us know. Allergies/Adverse Reactions: Allergies No Known Allergies Allergy (Verified 01/22/21 12:32) Medications to take at Discharge Ibuprofen [Advil] 200 mg PO DAILY PRN PRN 01/22/21 Oxycodone HCl/Acetaminophen [Percocet 5/325] 1 - 2 tablet PO Q6H PRN PRN 3 Days #15 tablet 01/23/21 The following prescriptions were given: Oxycodone HCl/Acetaminophen [Percocet 5/325] 1 - 2 tablet PO Q6H PRN PRN 3 Days #15 tablet PRN Reason: Pain Transmission Status: Received by [id number] Orders to be completed after discharge: 30-Day Event Recorder [[facility]] Location: None Selected Primary Care Physician: Yogi Lyons MD [Primary Care Provider] - Test Results: Test results from this visit will be discussed in further detail at your follow- up appointment, if applicable. Please Follow Up With: Gertrudis Chase MD - Your 5 PM and on the weekends call [phone] with any concerns When: The office for follow-up appointment in 2 weeks. Proposed Discharge Date: 01/25/21
[2021-01-23] MEDS: 0.9% Saline Lock 10 ML Syringe IV (15:44)
[2021-01-24] VITALS (11 sets, daily range): BP systolic 97–111; BP diastolic 58–71; PULSE 75–90; RESP 15–18; TEMP 36.4–36.9; O2SAT 96–99
[2021-01-24 05:54] LABS: Anion Gap 7 (5-15); BUN 6 mg/dL (7-18); BUN/Creat Ratio 12.8 RATIO (10-20); Calcium,Total 8.4 mg/dL (8.5-10.1); Chloride 105 mmol/L (98-107); Creatinine, Serum 0.47 mg/dL (0.55-1.02); EST Glomerular Filtration Rate 150 mL/min (>60); Est Glom Filt Rate - Afr Amer 181 mL/min (>60); Glucose 87 mg/dL (74-106); Sodium Level 140 mmol/L (136-145)
[2021-01-24] MEDS: fentaNYL 100 MCG/2 ML Ampul 25 MCG IV ×2 (06:00→08:19)
[2021-01-24] MEDS: Lactated Ringers 1,000 ML 130 ML IV (06:00)
[2021-01-24] MEDS: Potassium Chloride Oral Tablet 20 MEQ 60 MEQ PO ×2 (08:18→13:29)
--- NOTE | 2021-01-24 09:41 | PCM.PROGNOTE ---
Patient Problems: Active and Suspected Problems (Last Reviewed 01/22/21 @ 15:00 by Jennifer CASTILLO, JA) Abdominal pain (Acute) Diarrhea (Acute) Abdominal pain (Acute) Subjective: Patient seen and examined. States she continues to have right-sided abdominal pain. Reports difficulty taking a deep breath due to abdominal pain. Denies chest pain, palpitations. Heart rhythm has remained in normal sinus rhythm. - Physical Exam Vitals/I&O's: Vital Signs Temp Pulse Resp BP Pulse Ox 97.6 F L 87 18 111/70 96 01/24/21 07:50 01/24/21 07:50 01/24/21 07:50 01/24/21 07:50 01/24/21 07:50 Oxygen Delivery Method Room Air Weight: 167 lb 12.348 oz Body Mass Index (BMI) 26.2 Intake and Output for Last 24 Hours 01/22/21 01/23/21 01/24/21 23:59 23:59 23:59 Intake Total 1120 / 1120 5262.33 / 5262.33 1277.33 / 1277.33 Output Total 1050 / 1050 2200 / 2200 Balance 70 / 70 3062.33 / 3062.33 1277.33 / 1277.33 General: Alert, Oriented x3, Cooperative HEENT: Atraumatic, PERRLA, EOMI, Normocephalic Neck: Supple, No JVD, Negative Carotid Bruits Lungs: Clear to auscultation, Normal air movement Cardiovascular: Regular rate, No murmurs Abdomen: Bowel Sounds Present, Soft, Non-Distended, Tender - right sided Extremities: No clubbing, No cyanosis, No edema, Capillary Refill Less than 3 Seconds Skin: No rashes, No breakdown Musculoskeletal: No Tenderness to Palpation of Joints or Extremities Neurological: Cranial nerves II-XII grossly intact, Neuro grossly intact Psych/Mental Status: Normal Affect, Appropriate Microbiology Past 72 Hours 01/23/21 18:35 Stool Enteric Bacteriology - Final 01/22/21 18:35 Stool Stool Lactoferrin - Final 01/22/21 18:35 Stool C. difficile DNA Amplification - Final 01/22/21 19:20 Mucosa - Nasopharyngeal SARS-CoV-2 Antigen (Rapid) - Final Laboratory Results 01/23/21 12:04: Troponin I < 0.015 01/24/21 05:20: Sodium 140, Potassium 3.0 L, Chloride 105, Carbon Dioxide 28.0, Anion Gap 7, BUN 6 L, Creatinine 0.47 L, Estim Creat Clear Calc 140.80, Est GFR (MDRD) Af Amer 181, Est GFR (MDRD) Non-Af 150, BUN/Creatinine Ratio 12.8, Glucose 87, Calcium 8.4 L Current Medications Acetaminophen (Acetaminophen 325 Mg Tablet) 650 mg PO Q6H PRN PRN PRN Reason: Pain Score 1-10 Albuterol Sulfate (Albuterol 2.5 Mg/3 Ml Vial.Neb.) 2.5 mg INHALATION Q2H PRN PRN PRN Reason: Dyspnea, wheezing Fentanyl Citrate (Fentanyl 100 Mcg/2 Ml Ampul) 25 mcg IV Q2H PRN PRN PRN Reason: severe pain 6-10/10 while hypotensive Last Admin: 01/24/21 08:19 Dose: 25 mcg Documented by: Hydralazine HCl (Hydralazine 20 Mg/Ml Vial) 10 mg IV Q4H PRN PRN PRN Reason: SBP > 160 Hydromorphone HCl (Hydromorphone 0.5 Mg/0.5 Ml Syringe) 0.5 - 1 mg IV Q2H PRN PRN PRN Reason: Pain Score 1-10 Last Admin: 01/22/21 19:17 Dose: 0.5 mg Documented by: Hydromorphone HCl (Hydromorphone 1 Mg/Ml Syringe) 0.5 - 1 mg IV Q2H PRN PRN PRN Reason: Pain Score 1-10 Lactated Ringer's () 1,000 mls @ 130 mls/hr IV .Q7H42M [facility] Last Admin: 01/24/21 06:00 Dose: 130 mls/hr Documented by: Pantoprazole Sodium 40 mg/ (Sodium Chloride) 110 mls @ 330 mls/hr IV Q24 [facility] Last Infusion: 01/23/21 12:50 Dose: Infused Documented by: Ondansetron HCl (Ondansetron 4 Mg/2 Ml Vial) 4 mg IV Q8H PRN PRN PRN Reason: NAUSEA Last Admin: 01/22/21 17:15 Dose: 4 mg Documented by: Oxycodone HCl (Oxycodone 5 Mg Tablet) 5 - 10 mg PO Q4H PRN PRN PRN Reason: Pain Score 6-10 Prochlorperazine Edisylate (Prochlorperazine 10 Mg/2 Ml Vial) 5 - 10 mg IV Q4H PRN PRN PRN Reason: NAUSEA/VOMITING Last Admin: 01/23/21 15:45 Dose: 10 mg Documented by: Sodium Chloride (0.9% Saline Lock 10 Ml Syringe) 10 - 40 ml IV UD PRN PRN Reason: SALINE FLUSH Last Admin: 01/23/21 15:44 Dose: 10 ml Documented by: Medical Necessity - Tobacco Use Smoking Status: Never smoker Assessment/Plan All Active Problems (Last Reviewed 01/22/21 @ 15:00 by Jennifer CASTILLO, PA-C) Abdominal pain (Acute) Diarrhea (Acute) Abdominal pain (Acute) Anxiety as acute reaction to exceptional stress (Acute) 1. New onset A. fib-returned to normal sinus rhythm. Troponin negative. Echocardiogram demonstrates an EF of 60%. TSH, mag within normal limits. 2. Hypokalemia-replace per protocol, trend BMP. 3. Hypotension-improved with fluid resuscitation. 4. Abdominal pain, questionable intussusception-General surgery following. Patient underwent diagnostic laparoscopy which showed no evidence of intussusception. Management per general surgery. DVT prophylaxis- SCDs This patient was seen by MALU Schofield under the supervision of Dr. Gordon.
--- NOTE | 2021-01-24 09:47 | PN.SURG_ITS ---
Patient Problems: Active and Suspected Problems (Last Reviewed 01/22/21 @ 15:00 by Jennifer CASTILLO, SAMUELC) Abdominal pain (Acute) Diarrhea (Acute) Abdominal pain (Acute) Subjective: Patient has some discomfort in her abdomen. Patient denies any flatus or bowel movement since surgery. Diagnostic laparoscopy did not show any evidence of intussusception or small bowel pathology. - Physical Exam Vitals/I&O's: Vital Signs Temp Pulse Resp BP Pulse Ox 97.6 F L 87 18 111/70 96 01/24/21 07:50 01/24/21 07:50 01/24/21 07:50 01/24/21 07:50 01/24/21 07:50 Oxygen Delivery Method Room Air Weight: 167 lb 12.348 oz Body Mass Index (BMI) 26.2 Intake and Output for Last 24 Hours 01/22/21 01/23/21 01/24/21 23:59 23:59 23:59 Intake Total 1120 / 1120 5262.33 / 5262.33 1277.33 / 1277.33 Output Total 1050 / 1050 2200 / 2200 Balance 70 / 70 3062.33 / 3062.33 1277.33 / 1277.33 General: Alert, Oriented x3, Cooperative, No apparent distress HEENT: Atraumatic Lungs: Normal air movement Cardiovascular: Regular rate Abdomen: Soft, Non-Distended, Tender - At incisions right upper quadrant, no peritoneal signs incision clean dry and intact Microbiology Past 72 Hours 01/23/21 18:35 Stool Enteric Bacteriology - Final 01/22/21 18:35 Stool Stool Lactoferrin - Final 01/22/21 18:35 Stool C. difficile DNA Amplification - Final 01/22/21 19:20 Mucosa - Nasopharyngeal SARS-CoV-2 Antigen (Rapid) - Final Laboratory Results 01/23/21 12:04: Troponin I < 0.015 01/24/21 05:20: Sodium 140, Potassium 3.0 L, Chloride 105, Carbon Dioxide 28.0, Anion Gap 7, BUN 6 L, Creatinine 0.47 L, Estim Creat Clear Calc 140.80, Est GFR (MDRD) Af Amer 181, Est GFR (MDRD) Non-Af 150, BUN/Creatinine Ratio 12.8, Glucose 87, Calcium 8.4 L Current Medications Acetaminophen (Acetaminophen 325 Mg Tablet) 650 mg PO Q6H PRN PRN PRN Reason: Pain Score 1-10 Albuterol Sulfate (Albuterol 2.5 Mg/3 Ml Vial.Neb.) 2.5 mg INHALATION Q2H PRN PRN PRN Reason: Dyspnea, wheezing Fentanyl Citrate (Fentanyl 100 Mcg/2 Ml Ampul) 25 mcg IV Q2H PRN PRN PRN Reason: severe pain 6-10/10 while hypotensive Last Admin: 01/24/21 08:19 Dose: 25 mcg Documented by: Hydralazine HCl (Hydralazine 20 Mg/Ml Vial) 10 mg IV Q4H PRN PRN PRN Reason: SBP > 160 Hydromorphone HCl (Hydromorphone 0.5 Mg/0.5 Ml Syringe) 0.5 - 1 mg IV Q2H PRN PRN PRN Reason: Pain Score 1-10 Last Admin: 01/22/21 19:17 Dose: 0.5 mg Documented by: Hydromorphone HCl (Hydromorphone 1 Mg/Ml Syringe) 0.5 - 1 mg IV Q2H PRN PRN PRN Reason: Pain Score 1-10 Lactated Ringer's () 1,000 mls @ 130 mls/hr IV .Q7H42M QAMAR Last Admin: 01/24/21 06:00 Dose: 130 mls/hr Documented by: Pantoprazole Sodium 40 mg/ (Sodium Chloride) 110 mls @ 330 mls/hr IV Q24 QAMAR Last Infusion: 01/23/21 12:50 Dose: Infused Documented by: Ondansetron HCl (Ondansetron 4 Mg/2 Ml Vial) 4 mg IV Q8H PRN PRN PRN Reason: NAUSEA Last Admin: 01/22/21 17:15 Dose: 4 mg Documented by: Oxycodone HCl (Oxycodone 5 Mg Tablet) 5 - 10 mg PO Q4H PRN PRN PRN Reason: Pain Score 6-10 Prochlorperazine Edisylate (Prochlorperazine 10 Mg/2 Ml Vial) 5 - 10 mg IV Q4H PRN PRN PRN Reason: NAUSEA/VOMITING Last Admin: 01/23/21 15:45 Dose: 10 mg Documented by: Sodium Chloride (0.9% Saline Lock 10 Ml Syringe) 10 - 40 ml IV UD PRN PRN Reason: SALINE FLUSH Last Admin: 01/23/21 15:44 Dose: 10 ml Documented by: Medical Necessity - Tobacco Use Smoking Status: Never smoker Assessment/Plan All Active Problems (Last Reviewed 01/22/21 @ 15:00 by Jennifer CASTILLO, PAFloraC) Abdominal pain (Acute) Diarrhea (Acute) Abdominal pain (Acute) Anxiety as acute reaction to exceptional stress (Acute) 50-year-old female with abdominal pain questionable interception on CT, diarrhea, status post diagnostic laparoscopy postop day 1 new onset A. fib resolved 1. Patient on a regular diet does have some discomfort in the right upper quadrant has not had flatus or bowel movement since surgery. Patient also had hypokalemia which was replaced. Recheck potassium at noon today. Possible DC later today if potassium is improved and patient's abdominal pain is improved and she is tolerating diet. 2. Encourage ambulation 3. New onset A. fib??resolved, appreciate assistance no plans for anticoagulation but did set up for an outpatient Holter. Gertrudis Chase M.D. Pager: [phone] [facility] [address] [place] [address], [facility]patient [facility], [address] [place] [address] Office: [phone]
[2021-01-24 12:46] LABS: Potassium 3.2 mmol/L (3.5-5.1)
[2021-01-24] MEDS: oxyCODONE 5 MG Tablet PO ×2 (12:54→19:12)
[2021-01-24] MEDS: 0.9% Saline Lock 10 ML Syringe IV ×3 (13:29→19:13)
[2021-01-24] MEDS: Ketorolac 15 MG/ML Vial IV ×2 (13:29→22:57)
--- NOTE | 2021-01-24 14:45 | RAD_ITS ---
STUDY: X-RAY - ABDOMEN/PELVIS REASON FOR EXAM: Female, 50 years old. Abd pain TECHNIQUE: Single AP view of the abdomen / pelvis. COMPARISON: Comparison is made with prior study dated 01/23/2021. FINDINGS: Minimal bibasilar atelectasis. A small amount of residual contrast is seen in the left hemicolon. RAD/Abdomen Single View (Portable) IMPRESSION: A small amount of oral contrast is seen in the left hemicolon. Electronically Signed: Vijay Pablo MD at 15:04 EDT , Service support ,
[2021-01-24] MEDS: Lactated Ringers 1,000 ML 90 ML IV (15:04)
[2021-01-24] MEDS: Ondansetron 4 MG/2 ML Vial IV (22:57)
[2021-01-24] MEDS: Acetaminophen 325 MG Tablet 650 MG PO (22:57)
[2021-01-25 02:00] VITALS: PULSE 71
[2021-01-25] MEDS: Lactated Ringers 1,000 ML 90 ML IV (02:15)
[2021-01-25 05:04] VITALS: BP 110/70; PULSE 72; RESP 16; TEMP 36.6; O2SAT 97
[2021-01-25] MEDS: proCHLORPERazine 10 MG/2 ML Vial IV (05:45)
[2021-01-25] MEDS: 0.9% Saline Lock 10 ML Syringe IV (05:46)
[2021-01-25] MEDS: oxyCODONE 5 MG Tablet PO (05:48)
[2021-01-25 06:00] VITALS: PULSE 77
[2021-01-25 06:12] LABS: Anion Gap 2 (5-15); BUN 5 mg/dL (7-18); BUN/Creat Ratio 9.3 RATIO (10-20); Calcium,Total 8.3 mg/dL (8.5-10.1); Chloride 107 mmol/L (98-107); Creatinine, Serum 0.54 mg/dL (0.55-1.02); EST Glomerular Filtration Rate 128 mL/min (>60); Est Glom Filt Rate - Afr Amer 155 mL/min (>60); Estimated Creatinine Clearance 122.55 ml/min; Glucose 81 mg/dL (74-106); Sodium Level 140 mmol/L (136-145)
--- NOTE | 2021-01-25 06:53 | PCM.DC.SUM ---
Discharge Date and Diagnosis - Problem List Patient Problems: Active and Suspected Problems (Last Reviewed 01/22/21 @ 15:00 by Jennifer CASTILLO PA-C) Abdominal pain (Acute) Diarrhea (Acute) Abdominal pain (Acute) Date of Admission: 01/22/21 Date of Discharge: 01/25/21 - Primary Discharge Diagnosis Acute Problems: Active Problems (Last Reviewed 01/22/21 @ 15:00 by Jennifer CASTILLO PA-C) Abdominal pain (Acute) Diarrhea (Acute) Abdominal pain (Acute) Hospital Course and Treatment Imaging Results: Clinical Impression(s) from Imaging Studies Small Bowel X-Ray 01/22/21 13:25 IMPRESSION: No bowel obstruction Electronically Signed: Alessio Manning MD at 16:55 EDT Tel , Service support , KUB X-Ray 01/23/21 09:14 IMPRESSION: Oral contrast is seen within the colon. The bowel gas pattern is unremarkable. Electronically Signed: Vijay Pablo MD at 9:42 EDT , Service support , KUB X-Ray 01/24/21 14:45 IMPRESSION: A small amount of oral contrast is seen in the left hemicolon. Electronically Signed: Vijay Pablo MD at 15:04 EDT , Service support , Operations: - - Exploratory laparoscopy Procedures: None Summary of Care Provided: The patient is a 50 year old F presented with abdominal pain and CT revealed possible intussusception of the small bowel. The pain did not improve and she was taken for exploratory laparoscopy where the small bowel appeared normal with no signs of intussusception. After surgery the patient was brought to the floor postoperatively and subsequent imaging showed the contrast making all the way through to the colon with no dilation of small bowel. The patient's pain slowly improved and her hypokalemia was corrected. When she was tolerating a diet and her abdominal pain was tolerated she was discharged home in stable condition. She will follow-up with Dr. Chase Patient Problems: Active and Suspected Problems (Last Reviewed 01/22/21 @ 15:00 by Jennifer CASTILLO, PAFloraC) Abdominal pain (Acute) Diarrhea (Acute) Abdominal pain (Acute) - Physical Exam Vitals/I&O's: Vital Signs Temp Pulse Resp BP Pulse Ox 97.9 F 77 16 110/70 97 01/25/21 05:04 01/25/21 06:00 01/25/21 05:04 01/25/21 05:04 01/25/21 05:04 Oxygen Delivery Method Room Air Weight: 167 lb 12.348 oz Body Mass Index (BMI) 26.2 Intake and Output for Last 24 Hours 01/23/21 01/24/21 01/25/21 23:59 23:59 23:59 Intake Total 5262.33 / 5262.33 3987.33 / 3987.33 1000 / 1000 Output Total 2200 / 2200 Balance 3062.33 / 3062.33 3987.33 / 3987.33 1000 / 1000 Microbiology Past 72 Hours 01/23/21 18:35 Stool Enteric Bacteriology - Final 01/22/21 18:35 Stool Stool Lactoferrin - Final 01/22/21 18:35 Stool C. difficile DNA Amplification - Final 01/22/21 19:20 Mucosa - Nasopharyngeal SARS-CoV-2 Antigen (Rapid) - Final Laboratory Results 01/24/21 12:12: Potassium 3.2 L 01/25/21 05:10: Sodium 140, Potassium 4.0, Chloride 107, Carbon Dioxide 31.0, Anion Gap 2 L, BUN 5 L, Creatinine 0.54 L, Estim Creat Clear Calc 122.55, Est GFR (MDRD) Af Amer 155, Est GFR (MDRD) Non-Af 128, BUN/Creatinine Ratio 9.3 L, Glucose 81, Calcium 8.3 L Current Medications Acetaminophen (Acetaminophen 325 Mg Tablet) 650 mg PO Q6H PRN PRN PRN Reason: Pain Score 1-10 Last Admin: 01/24/21 22:57 Dose: 650 mg Documented by: Albuterol Sulfate (Albuterol 2.5 Mg/3 Ml Vial.Neb.) 2.5 mg INHALATION Q2H PRN PRN PRN Reason: Dyspnea, wheezing Fentanyl Citrate (Fentanyl 100 Mcg/2 Ml Ampul) 25 mcg IV Q2H PRN PRN PRN Reason: severe pain 6-10/10 while hypotensive Last Admin: 01/24/21 08:19 Dose: 25 mcg Documented by: Hydralazine HCl (Hydralazine 20 Mg/Ml Vial) 10 mg IV Q4H PRN PRN PRN Reason: SBP > 160 Hydromorphone HCl (Hydromorphone 0.5 Mg/0.5 Ml Syringe) 0.5 - 1 mg IV Q2H PRN PRN PRN Reason: Pain Score 1-10 Last Admin: 01/22/21 19:17 Dose: 0.5 mg Documented by: Hydromorphone HCl (Hydromorphone 1 Mg/Ml Syringe) 0.5 - 1 mg IV Q2H PRN PRN PRN Reason: Pain Score 1-10 Ketorolac Tromethamine (Ketorolac 15 Mg/Ml Vial) 15 mg IV Q6H PRN PRN Reason: Pain Score 1-10 Stop: 01/29/21 13:13 Last Admin: 01/24/21 22:57 Dose: 15 mg Documented by: Nutritional Formula (Lactose Free) (Ensure Clear 120 Ml Liquid) 120 ml PO 4X/DAY QAMAR Last Admin: 01/24/21 21:48 Dose: Not Given Documented by: Ondansetron HCl (Ondansetron 4 Mg/2 Ml Vial) 4 mg IV Q8H PRN PRN PRN Reason: NAUSEA Last Admin: 01/24/21 22:57 Dose: 4 mg Documented by: Oxycodone HCl (Oxycodone 5 Mg Tablet) 5 - 10 mg PO Q4H PRN PRN PRN Reason: Pain Score 6-10 Last Admin: 01/25/21 05:48 Dose: 10 mg Documented by: Pantoprazole Sodium (Pantoprazole Sodium 40 Mg Tablet) 40 mg PO DAILY [facility] Prochlorperazine Edisylate (Prochlorperazine 10 Mg/2 Ml Vial) 5 - 10 mg IV Q4H PRN PRN PRN Reason: NAUSEA/VOMITING Last Admin: 01/25/21 05:45 Dose: 10 mg Documented by: Sodium Chloride (0.9% Saline Lock 10 Ml Syringe) 10 - 40 ml IV UD PRN PRN Reason: SALINE FLUSH Last Admin: 01/25/21 05:46 Dose: 10 ml Documented by: Discharge Diet: Light diet - advance as tolerated Discharge Activity: May not drive while taking narcotic pain medications. May shower in (days): 1 Call your doctor if your incision/area has: Continuous Slow Oozing, Sudden Increased Bleeding, Increased Pain/ Swelling, Increased Redness, Foul Smelling Discharge, Swelling at the incision site Call your doctor if you observe: Fever of 101 or Higher Home Medications: Medications to take at Discharge Ibuprofen [Advil] 200 mg PO DAILY PRN PRN 01/22/21 Oxycodone HCl/Acetaminophen [Percocet 5/325] 1 - 2 tablet PO Q6H PRN PRN 3 Days #15 tablet 01/23/21 Following Prescriptions Were Given to Patient: Oxycodone HCl/Acetaminophen [Percocet 5/325] 1 - 2 tablet PO Q6H PRN PRN 3 Days #15 tablet PRN Reason: Pain Transmission Status: [id number] Other Amb Orders: 30-Day Event Recorder [[facility]] Location: None Selected Primary Care Physician: Yogi Lyons MD [Primary Care Provider] - Please Follow Up With: Gertrudis Chase MD - Your 5 PM and on the weekends call [phone] with any concerns When: The office for follow-up appointment in 2 weeks. Additional Instructions: Our office will referral to GI they will contact us you for capsule endoscopy. If you not hear from them let us know if there is any issues with insurance let us know. Medical Necessity - Tobacco Use Smoking Status: Never smoker Meaningful Use Info Meaningful Use Diagnoses (Choose all that apply): None applicable
[2021-01-25 08:38] VITALS: PULSE 97; O2SAT 96
[2021-01-25 08:39] VITALS: BP 116/72; PULSE 71; RESP 16; TEMP 36.6; O2SAT 98
[2021-01-25] MEDS: Ensure Clear 120 ML Liquid PO (09:11)
[2021-01-25] MEDS: Pantoprazole Sodium 40 MG Tablet PO (09:12)
--- NOTE | 2021-01-25 10:06 | PCM.PN.BLA ---
Progress Note Patient has not had further atrial fibrillation on telemetry. Plan for discharge on 30-day event monitor for further evaluation of paroxysmal atrial fibrillation. CHADSVASC is 1 for being female. We will not placed on anticoagulation at discharge. Dr. Villegas to read event monitor. Results will be sent to PCP. Butler for discharge from hospitalist standpoint. STROKE Vital Signs/Narrative: Vital Signs Temp Pulse Resp BP Pulse Ox 01/25/21 08:39 98 F 71 16 116/72 98 01/25/21 08:38 97 96
== END 2021-01-25 10:30 | disposition home or self-care (01) ==
LOC: ED 13:36 → MS3 17:05
PROVIDERS: Family Medicine; Nurse Practitioner Family; Admitting Provider Surgery; Emergency Provider Emergency Medicine; PCP Family Medicine; Visit Provider Internal Medicine
PROC: (CPT 49320; principal; 2021-01-23 13:45)
DX: R10.13 Epigastric pain (principal); R10.12 Left upper quadrant pain; R19.7 Diarrhea, unspecified; E87.6 Hypokalemia; F41.1 Generalized anxiety disorder; F43.0 Acute stress reaction; N83.201 Unspecified ovarian cyst, right side; I95.9 Hypotension, unspecified; I48.0 Paroxysmal atrial fibrillation
CPT/HCPCS: 49320; 58999; 36415; 74018; 74250; 80048; 83630; 83735; 84132; 84443; 84484; 85025; 87426; 87493; 87506; 93005; 93306; 96361; 96365; 96366; 96375; 96376; 99218; 99285; J7030; J7120; A4216; G0378; J2405; J3490